=== PATIENT | female | born 1990 | race Caucasian/White ===

== ENCOUNTER 2017-07-02 22:25 | Outpatient (CLI) | payer OTHER ==
[2017-07-02 23:05] LABS: Appearance,Urine Cloudy (Clear); Bacteria,Urine Rare /hpf; Bilirubin,Urine Negative (Negative); Glucose,Urine (UA) Negative (Negative); Ketones,Urine Negative (Negative); Leukocyte Esterase,Urine Small (Negative); Mucus,Urine Few /hpf; Nitrite,Urine Negative (Negative); PH, Urine 6.5 (5.0-8.0); Particle Count 8907; Protein,Urine Trace (Negative); RBC,Urine 1 /hpf (0-5); Specific Gravity,Urine 1.027 (1.001-1.035); Squamous Epithelial Cell,Urine 10 /hpf (0-4); UA Billing (MACRO vs. MICRO) MICRO; WBC,Urine 4 /hpf (0-5)
[2017-07-02 23:41] VITALS: BP 112/72; PULSE 88; RESP 18; TEMP 97.8
--- NOTE | 2017-07-23 20:13 | P.MSEPDOC ---
Presenting Problems - Arrival Data Date of Arrival on Unit: 07/02/17 Time of Arrival on Unit: 22:25 Mode of Transport: Wheelchair - Complaint OB-Reason for Admission/Chief Complaint: Pain Medical History - Information : 1 Para: 0 Term: 0 : 0 Abortions: Spontaneous or Elective: 0 Number of Living Children: 0 - Gestational Age Gestational Age by ALHAJI (wks/days): 27 Weeks and 6 Days Review of Systems - Review of Systems Constitutional: No problems Breast: No problems ENT: No problems Cardiovascular: No problems Respiratory: No problems Gastrointestinal: No problems Genitourinary: No problems Musculoskeletal: No problems Neurological: No problems Skin: No problems Vital Signs - Temperature Temperature: 97.8 F Temperature Source: Oral - Pulse Right Brachial Pulse Rate: 88 Pulse Assessment Method: Automatic Cuff - Respirations Respiratory Rate: 18 Oxygen Delivery Method: Room Air - Blood Pressure Right Arm Blood Pressure: 112/72 Blood Pressure Mean: 85 Blood Pressure Source: Automatic Cuff Medical Screen Scoring (Pre) - Cervical Exam Dilation: Exam Deferred Effacement: Exam Deferred Membranes: Intact - Uterine Contractions Frequency: N/A Duration: N/A Intensity: N/A - Maternal Vital Signs Maternal Temperature: N/A Maternal Blood Pressure: N/A Signs of Preeclampsia: N/A Maternal Respirations: N/A - Maternal Trauma Maternal Trauma: N/A - Assessment Baseline FHR: 135 Heart Rate - NICHD Category: Category I (Normal) = 0 - Total Score Total Score (Pre): 0 - Level of Risk Level of Risk: Low (0-5) Physician Notification (Pre) - Physician Notified Physician Notified Date: 07/02/17 Physician Notified Time: 23:15 Physician/Practitioner Notifed:: Dr. Grewal Spoke With: Dr. Grewal New Order Received: Yes (Discharge pt to home) - Notification Comment Comment: Dr. Grewal given report on pt in triage, c/o pain, u/a results, and fhts. Orders recieved to d/c pt to home. Disposition - Disposition OB Disposition: Discharge to home Discharge Date: 07/02/17 Discharge Time: 23:25 I agree with the RN Medical Screening Exam: Yes Risk & Benefit of care provided described in d/c instruction: Yes Diagnosis: RELATED CONDITIONS, UNSPECIFIED, SECOND TRIMESTER
== END 2017-07-02 23:25 | disposition home or self-care (01) ==
LOC: FBPOP 22:25
PROVIDERS: ATTEND Obstetrics & Gynecology
DX: O26.92 Pregnancy related conditions, unspecified, second trimester (principal); Z3A.27 27 weeks gestation of pregnancy
CPT/HCPCS: 81001; 99213

== ENCOUNTER 2017-07-18 01:17 | Emergency (ER) | payer SELFPAY ==
[2017-07-18] MEDS ORDERED: SODIUM CHLORIDE 0.9% 1,000 ML IV STA (01:22)
[2017-07-18 01:34] LABS: Basophils % (A) 0 %; CH 32.2; CHCM 35.2; Eosinophils # (A) 0.1 k/uL (0-0.7); Eosinophils % (A) 1 %; HDW 2.97; HGB 12.5 gm/dL (11.4-16.0); Luc # (Auto) 0.22; Luc % (Auto) 2; Lymphocytes % (A) 21 %; MCH 31.9 pg (25.0-35.0); MCHC 34.7 g/dL (31.0-37.0); Mean Platelet Volume 6.6; Monocytes # (A) 0.6 k/uL (0-1.0); Monocytes % (A) 6 %; Neutrophils # (A) 6.6 k/uL (1.3-7.7); Neutrophils % (A) 69 %; RBC 3.91 m/uL (3.80-5.40); RDW 13.3 % (11.5-15.5); WBC 9.6 k/uL (3.8-10.6); WBC (Perox) 9.82
[2017-07-18 01:35] LABS: Glucose,Whole Blood 85 mg/dL (75-99)
[2017-07-18 01:44] LABS: INR 0.9 (<1.2); Partial Thromboplastin Time 22.8 sec (22.0-30.0); Prothrombin Time 9.6 sec (9.0-12.0)
[2017-07-18 01:53] LABS: ALT 33 U/L (9-52); AST 24 U/L (14-36); Alkaline Phosphatase 120 U/L (38-126); Anion Gap 10 mmol/L; Blood Urea Nitrogen 8 mg/dL (7-17); Calcium 9.4 mg/dL (8.4-10.2); Carbon Dioxide 19 mmol/L (22-30); Chloride 106 mmol/L (98-107); Glucose 82 mg/dL (74-99); Magnesium 1.6 mg/dL (1.6-2.3); Non-African American GFR(MDRD) >60 (>60 ml/min/1.73 sqM); Potassium 4.5 mmol/L (3.5-5.1); Sodium 135 mmol/L (137-145); Total Bilirubin 0.4 mg/dL (0.2-1.3); Total Protein 6.6 g/dL (6.3-8.2)
--- NOTE | 2017-07-18 02:08 | ED ---
Arrhythmia/Palpitations HPI - General Stated Complaint: SYNCOPE Time Seen by Provider: 07/18/17 01:21 Source: patient Mode of arrival: wheelchair Limitations: no limitations - History of Present Illness Initial Comments: This patient is a 26-year-old woman, who states she is proximally 30 weeks , who presents to be evaluated for racing heart. 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 She states that she suddenly became lightheaded, a bit short of breath, felt her heart racing, and had some pressure in her chest. She states she has previously had the symptoms. She was seen by the cardiologists and had worn a Holter monitor. Patient was told that she had had a little bit of tachycardia but was told that she does not require any medications now, but they would perhaps reconsider after she delivers her baby. Currently the patient's symptoms are resolving. MD Complaint: "heart racing" -: minutes(s) Context: occurred during rest Arrhythmia History: SVT Associated Symptoms: chest pain, shortness of breath, other (Lightheadedness) Treatments Prior to Arrival: vagal maneuvers - Related Data Allergies Allergy/AdvReac Type Severity Reaction Status Date / Time No Known Allergies Allergy Verified 06/11/15 16:53 Review of Systems ROS Statement: Those systems with pertinent positive or pertinent negative responses have been documented in the HPI. ROS Other: All systems not noted in ROS Statement are negative. Constitutional: Denies: fever, chills Eyes: Denies: vision change Respiratory: Reports: dyspnea. Denies: cough, wheezes Cardiovascular: Reports: as per HPI, chest pain, palpitations. Denies: edema, syncope Gastrointestinal: Denies: abdominal pain, nausea, vomiting Genitourinary: Denies: dysuria, frequency, discharge, abnormal menses Musculoskeletal: Denies: back pain Skin: Denies: rash Neurological: Denies: headache, weakness, numbness Past Medical History Past Medical History: No Reported History History of Any Multi-Drug Resistant Organisms: None Reported Past Surgical History: Appendectomy Additional Past Surgical History / Comment(s): Rt ACL reconstruction Past Psychological History: No Psychological Hx Reported Smoking Status: Never smoker Past Alcohol Use History: None Reported Past Drug Use History: None Reported General Exam Limitations: no limitations General appearance: alert, in no apparent distress Head exam: Present: atraumatic, normocephalic Eye exam: Present: normal appearance. Absent: scleral icterus, conjunctival injection Neck exam: Present: normal inspection Respiratory exam: Present: normal lung sounds bilaterally. Absent: respiratory distress, wheezes, rales, rhonchi, stridor Cardiovascular Exam: Present: regular rate, normal rhythm, normal heart sounds. Absent: systolic murmur, diastolic murmur, rubs, gallop GI/Abdominal exam: Present: soft, mass (Gravid uterus palpable about 5 inches above the umbilicus. There is good movements palpable). Absent: distended, tenderness, guarding, rebound, pulsatile mass, hernia Extremities exam: Present: normal inspection, normal capillary refill. Absent: pedal edema, calf tenderness Back exam: Present: normal inspection. Absent: CVA tenderness (R), CVA tenderness (L) Neurological exam: Present: alert Skin exam: Present: warm, dry, intact, normal color. Absent: rash Course Vital Signs 07/18/17 01:24 Temperature 98.9 F Pulse Rate 96 Respiratory 18 Rate Blood Pressure 118/76 O2 Sat by Pulse 98 Oximetry EKG Findings - EKG Results: EKG: interpreted by ERMD, sinus rhythm (Rate approximately 92 bpm), normal axis , normal QRS, normal ST/T, no acute changes - SC, Pacemaker, Normal: Normal tracing: normal tracing Medical Decision Making - Lab Data Result diagrams: 07/18/17 01:25 07/18/17 01:25 Lab Results 07/18/17 07/18/17 07/18/17 Range/Units 01:22 01:25 01:25 WBC 9.6 (3.8-10.6) k/uL RBC 3.91 (3.80-5.40) m/uL Hgb 12.5 (11.4-16.0) gm/dL Hct 36.0 (34.0-46.0) % MCV 92.0 (80.0-100.0) fL MCH 31.9 (25.0-35.0) pg MCHC 34.7 (31.0-37.0) g/dL RDW 13.3 (11.5-15.5) % Plt Count 328 (150-450) k/uL Neutrophils % 69 % Lymphocytes % 21 % Monocytes % 6 % Eosinophils % 1 % Basophils % 0 % Neutrophils # 6.6 (1.3-7.7) k/uL Lymphocytes # 2.0 (1.0-4.8) k/uL Monocytes # 0.6 (0-1.0) k/uL Eosinophils # 0.1 (0-0.7) k/uL Basophils # 0.0 (0-0.2) k/uL PT (9.0-12.0) sec INR (<1.2) APTT (22.0-30.0) sec Sodium 135 L (137-145) mmol/L Potassium 4.5 (3.5-5.1) mmol/L Chloride 106 (98-107) mmol/L Carbon Dioxide 19 L (22-30) mmol/L Anion Gap 10 mmol/L BUN 8 (7-17) mg/dL Creatinine 0.60 (0.52-1.04) mg/dL Est GFR (MDRD) Af Amer >60 (>60 ml/min/1.73 sqM) Est GFR (MDRD) Non-Af >60 (>60 ml/min/1.73 sqM) Glucose 82 (74-99) mg/dL POC Glucose (mg/dL) 85 (75-99) mg/dL POC Glu [employer] ID Nancy Saravia Calcium 9.4 (8.4-10.2) mg/dL Magnesium 1.6 (1.6-2.3) mg/dL Total Bilirubin 0.4 (0.2-1.3) mg/dL AST 24 (14-36) U/L ALT 33 (9-52) U/L Alkaline Phosphatase 120 (38-126) U/L Troponin I (0.000-0.034) ng/mL Total Protein 6.6 (6.3-8.2) g/dL Albumin 3.5 (3.5-5.0) g/dL TSH 1.530 (0.465-4.680) mIU/L 07/18/17 07/18/17 Range/Units 01:25 01:25 WBC (3.8-10.6) k/uL RBC (3.80-5.40) m/uL Hgb (11.4-16.0) gm/dL Hct (34.0-46.0) % MCV (80.0-100.0) fL MCH (25.0-35.0) pg MCHC (31.0-37.0) g/dL RDW (11.5-15.5) % Plt Count (150-450) k/uL Neutrophils % % Lymphocytes % % Monocytes % % Eosinophils % % Basophils % % Neutrophils # (1.3-7.7) k/uL Lymphocytes # (1.0-4.8) k/uL Monocytes # (0-1.0) k/uL Eosinophils # (0-0.7) k/uL Basophils # (0-0.2) k/uL PT 9.6 (9.0-12.0) sec INR 0.9 (<1.2) APTT 22.8 (22.0-30.0) sec Sodium (137-145) mmol/L Potassium (3.5-5.1) mmol/L Chloride (98-107) mmol/L Carbon Dioxide (22-30) mmol/L Anion Gap mmol/L BUN (7-17) mg/dL Creatinine (0.52-1.04) mg/dL Est GFR (MDRD) Af Amer (>60 ml/min/1.73 sqM) Est GFR (MDRD) Non-Af (>60 ml/min/1.73 sqM) Glucose (74-99) mg/dL POC Glucose (mg/dL) (75-99) mg/dL POC Glu [employer]iner ID Calcium (8.4-10.2) mg/dL Magnesium (1.6-2.3) mg/dL Total Bilirubin (0.2-1.3) mg/dL AST (14-36) U/L ALT (9-52) U/L Alkaline Phosphatase (38-126) U/L Troponin I <0.012 (0.000-0.034) ng/mL Total Protein (6.3-8.2) g/dL Albumin (3.5-5.0) g/dL TSH (0.465-4.680) mIU/L Disposition Clinical Impression: Paroxysmal SVT (supraventricular tachycardia) Disposition: HOME SELF-CARE Condition: Good Instructions: Supraventricular Tachycardia (ED) Referrals: None,Stated [Primary Care Provider] - 1-2 days Kin Brizuela MD [STAFF PHYSICIAN] - 1-2 days
--- NOTE | 2017-07-18 02:25 | XR ---
EXAM: XR Chest, 1 View CLINICAL HISTORY: Reason: dysrhythmia TECHNIQUE: Frontal view of the chest. COMPARISON: No relevant prior studies available. FINDINGS: Lungs: Hypoventilatory examination. Bibasilar opacities are nonspecific and may represent atelectasis or an infectious or inflammatory process. Pleural space: No pneumothorax. Heart: Unremarkable. No cardiomegaly. Mediastinum: Unremarkable. Bones/joints: No acute osseous abnormality. IMPRESSION: Hypoventilatory examination. Bibasilar opacities are nonspecific and may represent atelectasis or an infectious or inflammatory process.
[2017-07-18 04:15] VITALS: BP 112/69; PULSE 90; RESP 16; TEMP 97.3
== END 2017-07-18 02:55 | disposition home or self-care (01) ==
LOC: EC 01:17
DX: O99.413 Diseases of the circulatory system complicating pregnancy, third trimester (principal); I47.1 Supraventricular tachycardia; Z3A.30 30 weeks gestation of pregnancy; Z95.0 Presence of cardiac pacemaker
CPT/HCPCS: 36415; 71010; 80053; 83735; 84443; 84484; 85025; 85610; 85730; 93005; 96360; 99284

== ENCOUNTER 2017-09-17 14:55 | Outpatient (CLI) | payer MEDICAID ==
[2017-09-17 15:48] VITALS: BP 114/67; PULSE 89; RESP 17; TEMP 97.4
--- NOTE | 2017-10-15 04:26 | P.MSEPDOC ---
Presenting Problems - Arrival Data Date of Arrival on Unit: 09/17/17 Time of Arrival on Unit: 14:55 Mode of Transport: Ambulatory - Complaint OB-Reason for Admission/Chief Complaint: Possible Onset of Labor, Other Comment: Rule out ROM Medical History - Information : 1 Para: 0 Term: 0 : 0 Abortions: Spontaneous or Elective: 0 Number of Living Children: 0 - Gestational Age Gestational Age by ALHAJI (wks/days): 38 Weeks and 6 Days Review of Systems - Review of Systems Constitutional: No problems Breast: No problems ENT: No problems Cardiovascular: No problems Respiratory: No problems Gastrointestinal: No problems Genitourinary: No problems Musculoskeletal: No problems Neurological: No problems Skin: No problems Vital Signs - Temperature Temperature: 97.4 F Temperature Source: Temporal Artery Scan - Pulse Pulse Oximetery Pulse Rate: 89 Pulse Assessment Method: Pulse Oximetry - Respirations Respiratory Rate: 17 Oxygen Delivery Method: Room Air O2 Sat by Pulse Oximetry: 97 - Blood Pressure Right Arm Blood Pressure: 114/67 Blood Pressure Mean: 82 Blood Pressure Source: Automatic Cuff Medical Screen Scoring (Pre) - Cervical Exam Dilation: 1-3 cm = 1 Effacement: More than 50% = 2 Membranes: Intact - Uterine Contractions Frequency: N/A Duration: N/A Intensity: N/A - Maternal Vital Signs Maternal Temperature: N/A Maternal Blood Pressure: N/A Signs of Preeclampsia: N/A Maternal Respirations: N/A - Pain Assessment Pain Scale Used: Numeric (1 - 10) Pain Intensity: 0 - Assessment Baseline FHR: 140 Heart Rate - NICHD Category: Category I (Normal) = 0 NST: Reactive Position: N/A - Total Score Total Score (Pre): 3 - Level of Risk Level of Risk: Low (0-5) Physician Notification (Pre) - Physician Notified Physician Notified Date: 09/17/17 Physician Notified Time: 15:27 Physician/Practitioner Notifed:: Alba Spoke With: Alba New Order Received: Yes (Discharge) Disposition - Disposition OB Disposition: Discharge to home Discharge Date: 09/17/17 Discharge Time: 15:31 I agree with the RN Medical Screening Exam: Yes Risk & Benefit of care provided described in d/c instruction: Yes Diagnosis: FALSE LABOR, UNSPECIFIED
== END 2017-09-17 15:31 | disposition home or self-care (01) ==
LOC: FBPOP 14:55
PROVIDERS: ATTEND Obstetrics & Gynecology
DX: O47.9 False labor, unspecified (principal); Z3A.38 38 weeks gestation of pregnancy
CPT/HCPCS: 59025; 84112; 99213

== ENCOUNTER 2017-12-03 12:50 | Emergency (ER) | payer MEDICAID, OTHER ==
[2017-12-03 13:00] VITALS: BP 109/65; PULSE 80; RESP 20; TEMP 98.3
--- NOTE | 2017-12-03 13:09 | ED ---
General Adult HPI - General Chief complaint: Needlestick/Exposure Stated complaint: IHS-Needlesick Time Seen by Provider: 12/03/17 13:03 Source: patient, RN notes reviewed Mode of arrival: ambulatory Limitations: no limitations - History of Present Illness Initial comments: Patient's 27-year-old female who presents emergency room today with a chief complaint of a needlestick injury. Patient does work as a nurse up on the floors. She states she was given insulin to a patient. She states she went to remove the needle patient moved and before she was able to hit the retraction but she accidentally poked her left index finger. States blood she did clean it. Patient denies any other complaints or symptoms. Patient denies any recent fever, chills, shortness of breath, chest pain, back pain, abdominal pain, nausea or vomiting, numbness or tingling, or any other complaints. - Related Data Home Medications Medication Instructions Recorded Confirmed Pnv,Calcium 72/Iron/Folic Acid 1 tab PO DAILY 09/17/17 09/23/17 [ Plus Tablet] Allergies Allergy/AdvReac Type Severity Reaction Status Date / Time No Known Allergies Allergy Verified 12/03/17 13:00 Review of Systems ROS Statement: Those systems with pertinent positive or pertinent negative responses have been documented in the HPI. ROS Other: All systems not noted in ROS Statement are negative. Past Medical History Past Medical History: No Reported History History of Any Multi-Drug Resistant Organisms: None Reported Past Surgical History: Appendectomy Additional Past Surgical History / Comment(s): Rt ACL reconstruction Past Anesthesia/Blood Transfusion Reactions: No Reported Reaction Past Psychological History: No Psychological Hx Reported Smoking Status: Never smoker Past Alcohol Use History: None Reported Past Drug Use History: None Reported - Past Family History Mother Family Medical History: Cancer Additional Family Medical History / Comment(s): Lung cancer General Exam - General Exam Comments Initial Comments: General: The patient is awake and alert, in no distress, and does not appear acutely ill. Eye: Pupils are equal, round and reactive to light, extra-ocular movements are intact. No nystagmus. There is normal conjunctiva bilaterally. No signs of icterus. Cardiovascular: There is a regular rate and rhythm. No murmur, rub or gallop is appreciated. Respiratory: Lungs are clear to auscultation, respirations are non-labored, breath sounds are equal. No wheezes, stridor, rales, or rhonchi. Musculoskeletal: Normal ROM, no tenderness. Strength 5/5. Sensation intact. Pulses equal bilaterally 2+. Neurological: A&O x 3. CN II-XII intact, There are no obvious motor or sensory deficits. Coordination appears grossly intact. Speech is normal. Skin: Patient does have small red dot at the left lateral distal index finger. Psychiatric: Cooperative, appropriate mood & affect, normal judgment. Limitations: no limitations Course Vital Signs 12/03/17 12:58 Temperature 98.3 F Pulse Rate 80 Respiratory 20 Rate Blood Pressure 109/65 O2 Sat by Pulse 99 Oximetry Medical Decision Making - Medical Decision Making Rapid HIV test was performed on source patient. Rapid test was negative. Patient has been informed. Patient did have a needlestick to the left index finger from a hypodermic needle. At this time patient's labs are pending. She is advised continue to follow [facility]. Disposition Clinical Impression: Needle stick injury of finger Disposition: HOME SELF-CARE Condition: Good Instructions: Needle Stick Injuries (ED) Referrals: None,Stated [Primary Care Provider] - 1-2 days Time of Disposition: 13:48
== END 2017-12-03 14:41 | disposition home or self-care (01) ==
LOC: EC 12:50
DX: S69.92XA Unspecified injury of left wrist, hand and finger(s), initial encounter (principal); Z79.899 Other long term (current) drug therapy; W46.0XXA Contact with hypodermic needle, initial encounter; Y92.69 Other specified industrial and construction area as the place of occurrence of the external cause; Y93.89 Activity, other specified; Y99.0 Civilian activity done for income or pay
CPT/HCPCS: 99282

== ENCOUNTER → 2018-07-05 | Outpatient (CLI) | payer MEDICAID ==
--- NOTE | 2018-07-05 10:07 | MR ---
EXAMINATION TYPE: MR knee RT wo con DATE OF EXAM: 07/05/2018 COMPARISON: NONE HISTORY: 561Pain in right knee, effusion, status post ACL reconstruction and partial medial meniscect mike with suspected recurrent tear. TECHNIQUE: Multiplanar, multisequence images of the knee is performed without IV contrast. FINDINGS: MEDIAL MENISCUS: Anterior horn is intact without tear. There is absent central portion and marked dim inished size remnant posterior meniscus, some increased signal is present in this remnant meniscus sa gittal image 7. LATERAL MENISCUS: Anterior and posterior horns are intact without tear. CRUCIATE LIGAMENTS: The posterior cruciate ligament is intact and unremarkable. Surgically repaired a nterior cruciate ligament appears intact with oblique course. No suspicious signal or wavy contour is identified. COLLATERAL LIGAMENTS: The medial collateral ligament and lateral collateral ligament complex are inta ct and unremarkable. EXTENSOR MECHANISM: Visualized quadriceps and patellar tendons are intact. EFFUSION: There is large suprapatellar joint effusion. POPLITEAL CYST: No popliteal/mejía cyst. TRICOMPARTMENT SPACES: Tricompartment joint spaces are fairly well-maintained. There is mild tibial c ondylar spurring noted. CARTILAGE: Fissuring and thinning of articular cartilage medial tibiofemoral compartment is identifie d. No significant chondromalacia patella is seen. BONE MARROW SIGNAL: Artifact from prior ACL surgical repair is present. No suspicious edema seen. OTHER: Artifact from surgical change noted in Hoffa's fat pad. IMPRESSION: Abnormality central body and posterior horn of medial meniscus favors postsurgical change , cannot rule out at least recurrent intrasubstance tear. Otherwise no meniscal tear is evident. Surg ically repaired ACL is felt intact. Large suprapatellar joint effusion is confirmed. Mild osteoarthri tic changes most prominent medial tibiofemoral compartment noted.
== END | disposition home or self-care (01) ==
LOC: RADMRIMAIN 08:43
PROVIDERS: ATTEND Orthopaedic Surgery
DX: M17.11 Unilateral primary osteoarthritis, right knee (principal); Z98.890 Other specified postprocedural states

== ENCOUNTER 2019-05-16 11:56 | Inpatient (IN) | payer MEDICAID ==
[2019-05-16] MEDS ORDERED: SODIUM CHLORIDE 0.9% 1,000 ML IV STA ×2 (12:47)
[2019-05-16 13:09] LABS: Basophils % (A) 0 %; Eosinophils # (A) 0.1 k/uL (0-0.7); Eosinophils % (A) 1 %; HCT 40.2 % (34.0-46.0); HGB 13.9 gm/dL (11.4-16.0); Lymphocytes # (A) 1.4 k/uL (1.0-4.8); Lymphocytes % (A) 14 %; MCH 29.8 pg (25.0-35.0); MCHC 34.5 g/dL (31.0-37.0); MCV 86.4 fL (80.0-100.0); Mean Platelet Volume 6.1; Monocytes # (A) 0.5 k/uL (0-1.0); Monocytes % (A) 5 %; Neutrophils # (A) 8.4 k/uL (1.3-7.7); Neutrophils % (A) 80 %; Platelet Count 324 k/uL (150-450); RBC 4.66 m/uL (3.80-5.40); RDW 12.8 % (11.5-15.5); WBC 10.5 k/uL (3.8-10.6)
[2019-05-16 13:15] LABS: Partial Thromboplastin Time 27.1 sec (22.0-30.0); Prothrombin Time 10.6 sec (9.0-12.0)
[2019-05-16 13:16] LABS: ALT 17 U/L (9-52); AST 25 U/L (14-36); African American GFR (CKD) >90 (>60 ml/min/1.73 sqM); Albumin 4.4 g/dL (3.5-5.0); Alkaline Phosphatase 68 U/L (38-126); Anion Gap 12 mmol/L; Blood Urea Nitrogen 11 mg/dL (7-17); Calcium 9.6 mg/dL (8.4-10.2); Carbon Dioxide 19 mmol/L (22-30); Chloride 108 mmol/L (98-107); Glucose 95 mg/dL (74-99); Non-African American GFR(CKD) >90 (>60 ml/min/1.73 sqM); Potassium 4.2 mmol/L (3.5-5.1); Sodium 139 mmol/L (137-145); Total Bilirubin 0.7 mg/dL (0.2-1.3); Total Protein 7.3 g/dL (6.3-8.2)
--- NOTE | 2019-05-16 13:21 | XR ---
EXAMINATION TYPE: XR chest 2V DATE OF EXAM: 05/16/2019 COMPARISON: Prior chest x-ray dated 07/18/2017 HISTORY: Altered mental status TECHNIQUE: Frontal and lateral views of the chest are obtained. FINDINGS: There is no focal air space opacity, pleural effusion, or pneumothorax seen. The cardiac silhouette size is within normal limits. The osseous structures are intact. IMPRESSION: No acute cardiopulmonary process.
--- NOTE | 2019-05-16 14:17 | ED ---
Altered Mental Status HPI - General Chief Complaint: Altered Mental Status Stated Complaint: memory loss Time Seen by Provider: 05/16/19 12:28 Source: patient, family Mode of arrival: ambulatory Limitations: no limitations - History of Present Illness Initial Comments: This is a 28-year-old female the ER for evaluation. Patient presents very anxious, crying regarding recent short-term memory loss. Patient is continues loss of memory currently, unable to recall events of the day. No prior history of similar complaint, no significant stressors in her life, patient denies any new medications, denies drugs or alcohol. Symptoms were noticed by who are talking the patient on the phone off working today. Patient occasional headache, no current headache no nausea vomiting. MD Complaint: altered mental status, confusion (Short-term memory loss) -: hour(s) Consistency of Symptoms: constant Associated Symptoms: denies other symptoms - Related Data Home Medications Medication Instructions Recorded Confirmed No Known Home Medications 05/16/19 05/16/19 Allergies Allergy/AdvReac Type Severity Reaction Status Date / Time No Known Allergies Allergy Verified 05/16/19 14:06 Review of Systems ROS Statement: Those systems with pertinent positive or pertinent negative responses have been documented in the HPI. ROS Other: All systems not noted in ROS Statement are negative. Past Medical History Past Medical History: No Reported History History of Any Multi-Drug Resistant Organisms: None Reported Past Surgical History: Appendectomy Additional Past Surgical History / Comment(s): Rt ACL reconstruction Past Anesthesia/Blood Transfusion Reactions: No Reported Reaction Past Psychological History: No Psychological Hx Reported Smoking Status: Never smoker Past Alcohol Use History: Occasional Past Drug Use History: None Reported - Past Family History Mother Family Medical History: Cancer Additional Family Medical History / Comment(s): Lung cancer General Exam - General Exam Comments Initial Comments: NIH of 0, memory testing, one out of 3 able to be called Limitations: no limitations General appearance: alert, in no apparent distress Head exam: Present: atraumatic, normocephalic, normal inspection Eye exam: Present: normal appearance, PERRL, EOMI. Absent: scleral icterus, conjunctival injection, periorbital swelling ENT exam: Present: normal exam, mucous membranes moist Neck exam: Present: normal inspection. Absent: tenderness, meningismus, lymph adenopathy Respiratory exam: Present: normal lung sounds bilaterally. Absent: respiratory distress, wheezes, rales, rhonchi, stridor Cardiovascular Exam: Present: regular rate, normal rhythm, normal heart sounds. Absent: systolic murmur, diastolic murmur, rubs, gallop, clicks GI/Abdominal exam: Present: soft, normal bowel sounds. Absent: distended, tenderness, guarding, rebound, rigid Extremities exam: Present: normal inspection, full ROM, normal capillary refill. Absent: tenderness, pedal edema, joint swelling, calf tenderness Back exam: Present: normal inspection Neurological exam: Present: alert, oriented X3, CN II-XII intact Psychiatric exam: Present: normal affect, normal mood Skin exam: Present: warm, dry, intact, normal color. Absent: rash Course Vital Signs 05/16/19 05/16/19 12:22 14:41 Temperature 98.5 F 98.4 F Pulse Rate 85 86 Respiratory 18 18 Rate Blood Pressure 111/73 103/62 O2 Sat by Pulse 98 99 Oximetry - Reevaluation(s) Reevaluation #1: 05/16/19 14:49 Medical records reviewed Reevaluation #2: 05/16/19 14:49 A she is not TPA candidate secondary to onset of symptoms are unknown Reevaluation #3: 05/16/19 14:50 Patient still with memory loss, emotional, crying during questioning Medical Decision Making - Medical Decision Making 28 female the ER for evaluation of recent short-term memory loss, started today. Patient is unable to recall any events that occurred to her today. Patient be admitted for both neurology evaluation - Lab Data Result diagrams: 05/16/19 12:52 05/16/19 12:52 Lab Results 05/16/19 05/16/19 05/16/19 Range/Units 12:52 12:52 12:52 WBC 10.5 (3.8-10.6) k/uL RBC 4.66 (3.80-5.40) m/uL Hgb 13.9 (11.4-16.0) gm/dL Hct 40.2 (34.0-46.0) % MCV 86.4 (80.0-100.0) fL MCH 29.8 (25.0-35.0) pg MCHC 34.5 (31.0-37.0) g/dL RDW 12.8 (11.5-15.5) % Plt Count 324 (150-450) k/uL Neutrophils % 80 % Lymphocytes % 14 % Monocytes % 5 % Eosinophils % 1 % Basophils % 0 % Neutrophils # 8.4 H (1.3-7.7) k/uL Lymphocytes # 1.4 (1.0-4.8) k/uL Monocytes # 0.5 (0-1.0) k/uL Eosinophils # 0.1 (0-0.7) k/uL Basophils # 0.0 (0-0.2) k/uL PT 10.6 (9.0-12.0) sec INR 1.0 (<1.2) APTT 27.1 (22.0-30.0) sec Sodium 139 (137-145) mmol/L Potassium 4.2 (3.5-5.1) mmol/L Chloride 108 H (98-107) mmol/L Carbon Dioxide 19 L (22-30) mmol/L Anion Gap 12 mmol/L BUN 11 (7-17) mg/dL Creatinine 0.62 (0.52-1.04) mg/dL Est GFR (CKD-EPI)AfAm >90 (>60 ml/min/1.73 sqM) Est GFR (CKD-EPI)NonAf >90 (>60 ml/min/1.73 sqM) Glucose 95 (74-99) mg/dL Calcium 9.6 (8.4-10.2) mg/dL Phosphorus (2.5-4.5) mg/dL Magnesium (1.6-2.3) mg/dL Total Bilirubin 0.7 (0.2-1.3) mg/dL AST 25 (14-36) U/L ALT 17 (9-52) U/L Alkaline Phosphatase 68 (38-126) U/L Troponin I (0.000-0.034) ng/mL Total Protein 7.3 (6.3-8.2) g/dL Albumin 4.4 (3.5-5.0) g/dL Salicylates mg/dL Acetaminophen ug/mL Serum Alcohol mg/dL 05/16/19 05/16/19 Range/Units 12:52 14:02 WBC (3.8-10.6) k/uL RBC (3.80-5.40) m/uL Hgb (11.4-16.0) gm/dL Hct (34.0-46.0) % MCV (80.0-100.0) fL MCH (25.0-35.0) pg MCHC (31.0-37.0) g/dL RDW (11.5-15.5) % Plt Count (150-450) k/uL Neutrophils % % Lymphocytes % % Monocytes % % Eosinophils % % Basophils % % Neutrophils # (1.3-7.7) k/uL Lymphocytes # (1.0-4.8) k/uL Monocytes # (0-1.0) k/uL Eosinophils # (0-0.7) k/uL Basophils # (0-0.2) k/uL PT (9.0-12.0) sec INR (<1.2) APTT (22.0-30.0) sec Sodium (137-145) mmol/L Potassium (3.5-5.1) mmol/L Chloride (98-107) mmol/L Carbon Dioxide (22-30) mmol/L Anion Gap mmol/L BUN (7-17) mg/dL Creatinine (0.52-1.04) mg/dL Est GFR (CKD-EPI)AfAm (>60 ml/min/1.73 sqM) Est GFR (CKD-EPI)NonAf (>60 ml/min/1.73 sqM) Glucose (74-99) mg/dL Calcium (8.4-10.2) mg/dL Phosphorus 3.3 (2.5-4.5) mg/dL Magnesium 1.7 (1.6-2.3) mg/dL Total Bilirubin (0.2-1.3) mg/dL AST (14-36) U/L ALT (9-52) U/L Alkaline Phosphatase (38-126) U/L Troponin I <0.012 (0.000-0.034) ng/mL Total Protein (6.3-8.2) g/dL Albumin (3.5-5.0) g/dL Salicylates <1.0 mg/dL Acetaminophen <10.0 ug/mL Serum Alcohol <10 mg/dL - EKG Data -: EKG Interpreted by Me (EKG shows normal sinus rhythm rate of 96, CT 120, QRS 88, QTc 462) - Radiology Data Radiology results: report reviewed (X-ray CT brain CTA had not negative for acute disease), image reviewed Critical Care Time Critical Care Time: Yes Total Critical Care Time: 31 Disposition Clinical Impression: Altered mental status, Short-term memory loss, CVA (cerebral vascular accident) Disposition: ADMITTED IP TO THIS HOSP Is patient prescribed a controlled substance at d/c from ED?: No
[2019-05-16] MEDS ORDERED: ASPIRIN 325 MG TAB PO STA (14:18)
--- NOTE | 2019-05-16 14:30 | CT ---
EXAMINATION TYPE: CT angio head neck DATE OF EXAM: 05/16/2019 HISTORY: COMPARISON: None CT DLP: Not provided mGycm. Automated Exposure Control for Dose Reduction was Utilized. TECHNIQUE: CTA scan of the neck is performed with IV Contrast, patient injected with 50 mL of Isovue 370, axial images are obtained, coronal and sagittal reformatted images are reviewed. Three-D recons tructed images are created on an independent workstation and reviewed. Source images are reviewed. FINDINGS: Carotid/Vascular Structures: There is a three-vessel arch. Vertebral arteries are codominant. The com mon carotid arteries bifurcate into internal and external carotid arteries without significant flow-l imiting stenosis. Cervical of [place]: Vertebral basilar system appears normal. Posterior cerebral vasculature is unrema rkable. Internal carotid arteries bifurcate normally into A1 and M1 segments. A2 segments are normal. The anterior communicating artery is patent. Left Posterior communicating artery is patent. Right po sterior communicating artery is patent. Other: Retention cysts are within the right maxillary sinus. Dental amalgam scatter artifact is prese nt. Glands submandibular glands appear symmetrical. Portion of the thyroid visualized is normal. Subglott ic airway within the [id number] is normal. Upper lung barnett visualized are clear. IMPRESSION: 1. No flow-limiting stenosis bilateral carotid bifurcations. 2. Normal [place]
[2019-05-16 14:43] LABS: Acetaminophen <10.0 ug/mL; Alcohol <10 mg/dL; Magnesium 1.7 mg/dL (1.6-2.3); Phosphorus 3.3 mg/dL (2.5-4.5); Salicylate <1.0 mg/dL
--- NOTE | 2019-05-16 14:53 | CT ---
EXAMINATION TYPE: CT brain wo con for TPA DATE OF EXAM: 05/16/2019 COMPARISON: None HISTORY: Memory Loss CT DLP: 1572.9 mGycm Automated exposure control for dose reduction was used. FINDINGS: There is no acute intracranial hemorrhage, mass effect, or midline shift identified. Prominent periva scular spaces noted inferior to the right basal ganglia. No suspicious extra-axial fluid collection. The ventricles and sulci are within normal limits in size. The globes are intact. Mucosal retention cysts are seen within the right maxillary sinus versus polyps. These measure up to 1.8 and 1.3 cm. Sc ant mucosal thickening of the left maxillary sinus. Sphenoid sinus polyp versus mucosal retention cys t measures 8 mm. Remaining paranasal sinuses and mastoid air cells are well aerated. IMPRESSION: No acute intracranial hemorrhage, mass effect, or midline shift is seen. Multiple mucosal retention c ysts versus polyps throughout the paranasal sinuses.
[2019-05-16 14:56] LABS: Appearance,Urine Clear (Clear); Bilirubin,Urine Negative (Negative); Blood,Urine Negative (Negative); Color,Urine Light Yellow; Glucose,Urine (UA) Negative (Negative); Ketones,Urine 1+ (Negative); Leukocyte Esterase,Urine Negative (Negative); Nitrite,Urine Negative (Negative); PH, Urine 6.5 (5.0-8.0); Protein,Urine Negative (Negative); Specific Gravity,Urine 1.042 (1.001-1.035); Urobilinogen,Urine <2.0 mg/dL (<2.0)
[2019-05-16 15:15] LABS: Amphetamine Screen,Urine Not Detected (NotDetected); Barbiturate Screen,Urine Not Detected (NotDetected); Benzodiazepines Screen,Urine Not Detected (NotDetected); Cocaine Screen,Urine Not Detected (NotDetected); Methadone Screen, Urine Not Detected (NotDetected); Opiate Screen,Urine Not Detected (NotDetected); Oxycodone Screen, Urine Not Detected (NotDetected); Phencyclidine Screen,Urine Not Detected (NotDetected); Tricyclic Antidepressant,Urine Not Detected (NotDetected); Urn Cannabinoid Scrn Not Detected (NotDetected)
[2019-05-16 17:14] LABS: Glucose,Whole Blood 77 mg/dL (75-99)
[2019-05-16 18:05] VITALS: BMI 28.3
[2019-05-16] MEDS ORDERED: ALPRAZolam 0.25 MG TAB PO PRN (21:14)
[2019-05-16] MEDS ORDERED: SODIUM CHLORIDE 0.9% 1,000 ML IV SCH (21:15)
--- NOTE | 2019-05-16 23:22 | HP ---
HISTORY AND PHYSICAL CHIEF COMPLAINT: Change in mental status, memory loss. HISTORY OF PRESENT ILLNESS: This 28-year-old woman with a past medical history of no significant medical problems except right ACL reconstruction, not being followed by any primary physician in the outpatient setting has apparently had significant memory loss recently. The last thing the patient remembers was going to fair, but subsequently the patient was apparently unable to recall what happened. Patient apparently worked the last 2 days and drove home and the patient admitted for further evaluation and treatment. The basic evaluations including CBC, BMP, were normal except CO2 of [address] scan of the brain was also done showed no acute mass effects. Chest x-ray was also done. Chest x- ray showed no cardiopulmonary process and CT angio was also done which showed no flow- limiting stenosis also. The patient admitted for further evaluation and treatment. There is no history of fever, rigors. No history of headache, loss of consciousness or seizures at this time. Even though the patient is unable to remember what happened the previous at least 48 hours. The patient apparently had some stressors with family and also planning the wedding and the patient also knew patient is at this time. No chest pain, palpitations. PAST MEDICAL HISTORY: Past medical history of right ACL reconstruction. MEDICATIONS: None. ALLERGIES: None. ALLERGIES: None. FAMILY HISTORY: History of lung cancer in the family. SOCIAL HISTORY: The patient is an RN. No smoking. No alcohol intake. No substance abuse. REVIEW OF SYSTEMS: ENT: No diminished vision. No diminished hearing. CARDIOVASCULAR: No angina or palpitations. RESPIRATIONS: No cough. No hemoptysis. GI no nausea or vomiting. no dysuria or hematuria. Nervous System: As mentioned earlier. ALLERGIES/IMMUNOLOGY: No asthma or hayfever. MUSCULOSKELETAL: No history of arthritis. CONSTITUTIONAL: As mentioned earlier. DERMATOLOGY negative. Rheumatology is negative. Psychiatry is negative. PHYSICAL EXAMINATION: Alert and oriented x3. Pulse is 84. Blood pressure is 113/64, respiration 18, temperature 98.8, pulse ox 97% on room air. HEENT: Conjunctivae normal. NECK: No jugular venous distention. CARDIOVASCULAR: S1, S2 muffled. RESPIRATORY: Breath sounds diminished in the bases. No rhonchi. No crackles. ABDOMEN: Soft, nontender. No mass palpable. LEGS no edema. No swelling. NERVOUS SYSTEM: Higher functions as mentioned earlier. Moves all 4 limbs. No focal motor or sensory deficits. SKIN: No ulcer, no rash. No bleeding. JOINTS no active deforming arthropathy. LABS: CBC within normal limits. Sodium 130, potassium 4.2, CO2 is 19. Other labs are noted. ASSESSMENT: 1. Transient amnesia and memory loss. Rule out TGA. 2. Multiple social stressors. 3. Change in mental status, rule out transient ischemic attack. 4. Decreased carbon dioxide. 5. History of right ACL the reconstruction. RECOMMENDATIONS AND DISCUSSION: In this 28-year-old woman who presented with multiple complex medical issues, we will monitor the patient closely. Continue the current medications, management and symptomatic treatment. We will continue telemetry. I will recommend full neurology workup including 2D echo, otherwise antiplatelet agents has been initiated. Cautious IV fluids also will be given. Otherwise, repeat labs will be ordered for tomorrow. Lipid panel has been suggested. DVT prophylaxis. I would also recommend D-dimer if it is elevated. A CT angio will be noted also. Otherwise prognosis guarded. Further recommendations to follow. Also recommend the patient follow up with a primary physician in the outpatient setting. MMODL / IJN: [id number] /
[2019-05-17 05:43] LABS: Basophils % (A) 1 %; Eosinophils # (A) 0.1 k/uL (0-0.7); Eosinophils % (A) 1 %; HGB 12.3 gm/dL (11.4-16.0); Lymphocytes # (A) 2.3 k/uL (1.0-4.8); Lymphocytes % (A) 28 %; MCH 30.5 pg (25.0-35.0); MCHC 34.3 g/dL (31.0-37.0); MCV 88.9 fL (80.0-100.0); Mean Platelet Volume 6.4; Monocytes # (A) 0.5 k/uL (0-1.0); Monocytes % (A) 6 %; Neutrophils # (A) 5.2 k/uL (1.3-7.7); Neutrophils % (A) 63 %; Platelet Count 288 k/uL (150-450); RBC 4.05 m/uL (3.80-5.40); RDW 14.3 % (11.5-15.5); WBC 8.2 k/uL (3.8-10.6)
[2019-05-17 05:48] LABS: African American GFR (CKD) >90 (>60 ml/min/1.73 sqM); Anion Gap 7 mmol/L; Blood Urea Nitrogen 8 mg/dL (7-17); Calcium 8.5 mg/dL (8.4-10.2); Carbon Dioxide 22 mmol/L (22-30); Chloride 108 mmol/L (98-107); Cholesterol 121 mg/dL (<200); Glucose 89 mg/dL (74-99); HDL Cholesterol 31 mg/dL (40-60); LDL Cholesterol,Calculated 74 mg/dL (0-99); Non-African American GFR(CKD) >90 (>60 ml/min/1.73 sqM); Potassium 4.1 mmol/L (3.5-5.1); Sodium 137 mmol/L (137-145); Triglycerides 78 mg/dL (<150)
[2019-05-17] MEDS ORDERED: PANTOPRAZOLE 40 MG TABLET PO SCH (07:30)
[2019-05-17] MEDS ORDERED: ASPIRIN 81 MG PO SCH (09:00)
[2019-05-17] MEDS ORDERED: ASPIRIN 325 MG TAB PO SCH (12:00)
--- NOTE | 2019-05-17 13:01 | ECHOF ---
Referral Reason:TGA?? MEASUREMENTS -------- HEIGHT: 165.1 cm WEIGHT: 77.1 kg BP: 91/50 IVSd: 1.2 cm (0.6 - 1.1) LVIDd: 2.8 cm (3.9 - 5.3) LVPWd: 0.9 cm (0.6 - 1.1) IVSs: 1.7 cm LVIDs: 2.1 cm LVPWs: 1.6 cm RVIDd: 3.5 cm (< 3.3) LAESV Index (A-L): 20.20 ml/m Ao Diam: 2.9 cm (2.0 - 3.7) LA Diam: 2.5 cm (2.7 - 3.8) AV Cusp: 1.7 cm (1.5 - 2.6) EPSS: 0.3 cm MV E Tr: 0.82 m/s MV DecT: 160 ms MV A Tr: 0.48 m/s MV E/A Ratio: 1.70 RAP: 5.00 mmHg RVSP: 12.32 mmHg MV EF SLOPE: 56.76 mm/s (70 - 150) MV EXCURSION: 16.92 mm (> 18.000) FINDINGS -------- Sinus rhythm. This was a technically good study. The left ventricular size is normal. Left ventricular wall thickness is normal. Overall left vent ricular systolic function is normal with, an EF between 55 - 60 %. The right ventricle is mildly enlarged. The left atrial size is normal. Normal LA size by volume 22+/-6 ml/m2. The right atrial size is normal. Interatrial and interventricular septum intact. The aortic valve is trileaflet and appears structurally normal. The mitral valve is normal. There is trace mitral regurgitation. Trace tricuspid regurgitation present. Right ventricular systolic pressure is normal at < 35 mmHg. There is no pulmonic regurgitation present. The aortic root size is normal. Normal inferior vena cava with normal inspiratory collapse consistent with estimated right atrial pre ssure of 5 mmHg. The flow patterns, measured by Doppler, appear normal. There is no pericardial effusion. CONCLUSIONS -------- 1. Sinus rhythm. 2. This was a technically good study. 3. The left ventricular size is normal. 4. Left ventricular wall thickness is normal. 5. Overall left ventricular systolic function is normal with, an EF between 55 - 60 %. 6. The right ventricle is mildly enlarged. 7. The left atrial size is normal. 8. Normal LA size by volume 22+/-6 ml/m2. 9. The right atrial size is normal. 10. Interatrial and interventricular septum intact. 11. The aortic valve is trileaflet and appears structurally normal. 12. The mitral valve is normal. 13. There is trace mitral regurgitation. 14. Trace tricuspid regurgitation present. 15. Right ventricular systolic pressure is normal at < 35 mmHg. 16. There is no pulmonic regurgitation present. 17. The aortic root size is normal. 18. Normal inferior vena cava with normal inspiratory collapse consistent with estimated right atrial pressure of 5 mmHg. 19. The flow patterns, measured by Doppler, appear normal. 20. There is no pericardial effusion. PRODUCE BUYER: Lizz Ryan RDCS
--- NOTE | 2019-05-17 13:13 | P.CNNES ---
History of Present Illness Consult date: 05/17/19 Reason for Consult: Rule out transient global amnesia Chief complaint: Short term memory loss of about 48 hours History of Present Illness: REFERRING PHYSICIAN: Dr. Omar Quiroz HISTORY OF PRESENT ILLNESS: Thank you for allowing me to evaluate Ms. Magaly Saenz. Ms. Magaly Saenz is a 28-year-old woman with no past medical history presenting with memory loss 4 days. Patient states that her last event she remembers is going to the fair with her fianc. Patient states that she return to work on Tuesday and Tuesday but she has no recollection of point to work. Yesterday, patient had come from picking up her 1-year-old son, when her found her and her house with her car running outside. Last night, patient was asking for her mother, who in 2015 after suffering from lung cancer. She had to talk to her sister to be reminded of what happened to her mother. Patient states that she's never had similar episodes in the past. She never lost consciousness as far as she can remember. No family at bedside for corroborating information. Of note, patient lives with her fianc and her 1-year-old son. Her fianc it is a occupational health nursing director, and patient works and needs to take care of her 1-year-old. Patient also states that she didn't remember that she was until her fianc brought it up yesterday. She had had discussed about going to , most likely prior to the fair, but patient does not remember this conversation and also did not remember that she was . Patient states that she has migraines couple of times a month. Patient also has been having difficulty with sleeping. She recently went through a sleep study which was always fully exhausted during the day. There is no results of the sleep study. Patient denies any recent sickness, nausea vomiting, blurred/double vision, dizziness. Patient is also preparing for her writing. Patient is engaged in October 2016, and she will be getting next year in July. Denies using OCPs. PAST MEDICAL HISTORY: No known past medical history PAST SURGICAL HISTORY: ACL surgery HOME MEDICATIONS: Ozempic (weight loss medication, but no longer taking it), not taking prenatals ALLERGIES: No known ALLERGIES SOCIAL HISTORY: Denies any alcohol, smoking, drug abuse history. Patient works as a nurse here FAMILY HISTORY: Mother from lung cancer with metastases to the brain. Mother also history of migraines. History of brother are healthy looking REVIEW OF SYSTEMS: The 14 systems are reviewed and no additional points are identified compared to the review of systems documented history and physical PHYSICAL EXAMINATION: VITAL SIGNS: Temperature 97.8 pulse rate 96 respiratory rate 16 blood pressure 114/76 oxygen saturation 90% on room air GEN.: NAD, pleasant and cooperative HEENT: NCAT, sclera without icterus NECK: Supple SKIN AND EXTREMITIES: Warm to touch, no edema NEURO: MENTAL STATUS: Patient alert and oriented to self, place, time. Able to name the current president. Speech fluent, able to name and repeat, following all commands readily. No right and left disorientation, extinction to double simultaneous stimulation, finger agnosia, neglect. CRANIAL NERVES II THROUGH XII: II: Pupils are equal and reactive to light symmetrically. No afferent pupillary defect. Visual barnett are intact. III, IV, : No ptosis. Extraocular movements full. No nystagmus. V: Facial sensation intact from V1-3. VII. No clear facial asymmetry. VIII: Hearing intact to finger rub bilaterally. IX, X: Symmetric palate elevation. XII: Shoulder shrug intact. XII: Tongue midline without fasciculation or atrophy. MOTOR: Normal bulk/tone. No pronator drift or tremor. Strength is 5/5 throughout all 4 extremities. SENSORY: Intact to light touch, temperature, pinprick in all 4 extremities. Romberg is negative. REFLEXES: 2+ throughout. Toes are downgoing. No clonus. Manuel's is absent COORDINATION: Finger to nose and heel to hernandez intact. No dysmetria. Rapid alternating movements with good speed and accuracy. GAIT: Narrow-based and stable. Able to toe/heel/tandem walk DIAGNOSTIC TESTING: LABORATORY: WBC 8.2 hemoglobin 12.3 platelets 288 sodium 137 potassium 4.1 chloride 108 bicarb 22 BUN 8 creatinine 0.64 total cholesterol 121 LDL 74 HDL 31 triglycerides 78 urinalysis negative urine hCG positive IMAGING: CT head without contrast 05/16/2019: No acute intracranial hemorrhage, mass effect, or midline shift. Multiple mucosal retention cysts versus polished about the paranasal sinuses area CTA head and neck with contrast 05/16/2019: No flow-limiting stenosis bilateral carotid bifurcations. Normal [place] of [place]. ASSESSMENT: Ms. Magaly Saenz is a 28-year-old woman with no past medical history presenting with memory loss 4 days, consulting neurology for concerns of transient global amnesia. Usually transient global amnesia lasts between 1 and 10 hours. Patient reporting that she does not have any recollection of the last 5 days of events. Patient also with a history of migraines with aura, which could cause some similar to transient global amnesia, but her symptoms lasted for 4+ days. Patient is not on any migraine prophylaxis. Patient also with multiple stressors along with difficulty sleeping. Patient also with no risk factors for stroke. Patient is young and no medical history. I will recommend psychiatry evaluation along with MRI brain without contrast as outpatient. We'll consider starting patient on a tricyclic antidepressant such as amitriptyline for migraine prophylaxis and her difficulty with sleeping. But it is a category C drug. Patient considering . Patient to follow up with a neurologist within 2-3 weeks of discharge after her MRI brain. Neurology will sign off at this time Past Medical History Past Medical History: No Reported History History of Any Multi-Drug Resistant Organisms: None Reported Past Surgical History: Appendectomy Additional Past Surgical History / Comment(s): Rt ACL reconstruction Past Anesthesia/Blood Transfusion Reactions: No Reported Reaction Past Psychological History: No Psychological Hx Reported Smoking Status: Never smoker Past Alcohol Use History: Occasional Past Drug Use History: None Reported - Past Family History Mother Family Medical History: Cancer Additional Family Medical History / Comment(s): Lung cancer Medications and Allergies Home Medications Medication Instructions Recorded Confirmed Type No Known Home Medications 05/16/19 05/16/19 History Allergies Allergy/AdvReac Type Severity Reaction Status Date / Time No Known Allergies Allergy Verified 05/16/19 14:06 Physical Examination - Vital Signs Vital Signs: Vital Signs Temp Pulse Resp BP Pulse Ox 05/17/19 09:00 97.8 F 96 94 H 114/76 98 05/17/19 04:00 97.8 F 78 16 91/58 98 05/17/19 00:00 98.2 F 85 18 94/55 97 05/16/19 20:00 98.6 F 91 16 90/57 97 05/16/19 17:30 98.2 F 82 14 124/83 98 05/16/19 16:39 98.8 F 84 18 113/64 97 05/16/19 14:41 98.4 F 86 18 103/62 99 05/16/19 12:22 98.5 F 85 18 111/73 98 Intake and Output 05/16/19 05/17/19 05/17/19 22:59 06:59 14:59 Other: # Voids 2 1 Weight 77.4 kg Results - Laboratory Findings CBC and BMP: 05/17/19 05:04 05/17/19 05:04 Abnormal Lab Findings: Abnormal Labs 05/16/19 05/16/19 05/16/19 12:52 12:52 14:30 Neutrophils # 8.4 H Chloride 108 H Carbon Dioxide 19 L HDL Cholesterol Ur Specific [place] 1.042 H Urine Ketones 1+ H 05/17/19 05:04 Neutrophils # Chloride 108 H Carbon Dioxide HDL Cholesterol 31 L Ur Specific [place] Urine Ketones
--- NOTE | 2019-05-17 16:39 | P.CN ---
Psychiatric Consult - . Consult date: 05/17/19 Consult:: 05/17/19 16:16 IDENTIFYING DATA: This patient is a 28-year-old female currently engaged lives with her iraida, her 1-year-old son in the house. HISTORY OF PRESENT ILLNESS: The patient was brought into the hospital by her fikrupa after complaints of memory loss the past 4 days. Patient states that her memory has been "fragmented" and has a lot of blanks that she is trying to fill in with the support of her family and her fikrupa. Patient remembers going to affair with her iraida which is her last memory. She states that she has no clear memory from Tuesday up until yesterday. She states that yesterday she called her fianc while she was in the car driving around town and parked the car in the driveway and went inside the house leaving the car running which alerted her boyfriend to take her into the hospital for evaluation. Patient spoke of many different stressors in her life including trying to raise her 1-year-old son and working full-time as a nurse. She also states that her fikrupa is currently in nursing school and has a busy schedule. Patient claims that she has a lot of responsibility and feels overwhelmed at times. Patient spoke of and had a picture of her mother at the bedside. She states that her mother approximately 3 years ago from lung cancer. Patient claims that at that time she didn't know much about her health and opted instead of telling her mother to undergo chemo instead to pursue an alternative treatment in [place] which was not very effective. Patient has regret about this and thinks about her mother daily. She states that since her mother her dad has been bad mouthing her and went off to another woman and states that her brother hasn't been very supportive with all this. Patient also also indicates that approximately 1 week ago she found out that she is unexpectedly. She states that she told her fianc at that time that she felt that she could not go through with the and wanted an . Currently when asked about the , patient states that given her health, stress level and responsibility of raising her 1-year-old son she states that "I don't think it would be fair and responsible to go through with this right now". Patient states that her mood has been "irritable" and describes anxiety and feeling overwhelmed in the past few months, however remains optimistic about change and claims that her mood may improve in the near future as she is working through arranging her wedding for next July. At this time patient denies any suicidal or homical ideations, intent or plan. Patient denies any auditory, visual hallucinations and denies any paranoia or delusions. PAST PSYCHIATRIC HISTORY: Admits to seeing a therapist for the past few weeks on a weekly basis. However feels that it was not a good fit and feels disappointed and is in the process of changing therapists. Patient denies being on any previous psychiatric medications, denies any [facility] attempts or [facility]. PAST MEDICAL HISTORY: Denies. ALLERGIES: No known drug allergies. CHEMICAL DEPENDENCY HISTORY: Admits to occasional alcohol use denies any nicotine use. Denies any other recreational drugs.. FAMILY PSYCHIATRIC HISTORY: denies. LEGAL HISTORY: denies. SOCIAL HISTORY: Currently engaged lives with her fianc and 1-year-old son. Was born and raised in [facility], completed college and now works as a nurse. MENTAL STATUS EXAM: General Appearance: Patient appears to be stated age is alert, pleasant, and cooperative. Patient is lying in bed with no acute distress Behavior: Patient is calmly seated without any agitated behavior. Speech: Patient's speech is fluent and nonpressured. Mood/Affect: Patient reports their mood is irritable, affect is congruent Suicidality/Homicidality: Patient denies having any suicidal or homicidal ideation intent or plan. Perceptions: Patient denies any auditory or visual hallucinations. Though content/process: There is no evidence of any delusional thought content and thought process is linear and goal-directed. Memory and concentration: AOX3, Can spell "WORLD" backwards, subtracts serial 7s accurtalely, 3/3 memory recall. Names objects correctly and good judgemnt and fund of knowledge. Judgment and insight: fair IMPRESSIONS: Adjustment disorder, mixed anxiety and depressed mood Rule out transient global amnesia. PLAN: -At this time patient patient does NOT meet criteria for inpatient psychiatric admission. -It appears that patient has been under significant amount of stress coupled with adjustment from losing her mother, losing family support, and recent news of being unexpectedly while also attempting to work full-time and carry the stress of raising her 1-year-old son. Spoke with patient different coping strategies and ways to reduce stress in her life. -Encourage patient to follow up with her appointment with her new therapist. -Discussed with patient the option for antidepressant medications to help with mood/anxiety. SSRIs were discussed however patient would like to wait on starting new medication the hospital given the risks of starting while she is grounded . Discussed with patient specifically starting Lexapro 5 mg daily in the future, patient verbally understood and agreed. -Sap Developer spoke with patient about her upcoming elective appointment and her thoughts and feelings associated with this and possible . -MRI pending as an outpatient with outpatient neuro follow-up. -Psychiatry will sign off at this point Thank you for the consult 05/17/19 16:28
[2019-05-17 18:06] VITALS: BP 105/76; PULSE 82; RESP 16; TEMP 98.3
--- NOTE | 2019-05-17 18:27 | PN ---
PROGRESS NOTE DATE OF SERVICE: 05/17/2019. This 28-year-old woman who was admitted with transient global amnesia is being closely monitored at this time. Neurology has seen the patient. Neurology recommended psychiatric evaluation as well MRI as an outpatient. No chest pain. No palpitations. No fever. PHYSICAL EXAM: Alert and oriented x2. Pulse is 78. Blood pressure 91/58, respirations 16, temperature 97.8, pulse ox 98% on room air. HEENT: Conjunctivae normal. Oral mucosa moist. NECK: No JVD. No carotid bruit. No lymph node enlargement. CARDIOVASCULAR: S1, S2 muffled. RESPIRATORY: Breath sounds diminished in the bases. No rhonchi. No crackles. ABDOMEN: Soft, nontender. NERVOUS SYSTEM: No focal deficits. LAB STUDIES: CBC, CMP within normal limits. Cholesterol panel is within normal limits. ASSESSMENT: 1. Transient amnesia, memory loss, possible fugue state or TGA. 2. Multiple social stressors. 3. Decreased CO2, improved. 4. History of right ACL reconstruction. RECOMMENDATIONS AND DISCUSSION: Recommend to continue current medications, management and symptomatic treatment. Otherwise, we will continue with Psychiatric evaluation. MRI recommended by Psychiatry. Further recommendations to follow. MMODL / IJN: [id number] /
--- NOTE | 2019-05-18 02:15 | DS ---
DISCHARGE SUMMARY FINAL DIAGNOSES: 1. Possibly transient global amnesia or memory loss. 2. Multiple social stressors. 3. Adjustment disorder, mixed anxiety, depressed mood. 4. Decreased CO2, present on admission improved. 5. History of right ACL reconstruction. DISCHARGE DISPOSITION: The patient will be discharged in stable condition with guarded prognosis after clearance from Neurology and Psychiatry. HISTORY OF PRESENT ILLNESS: This 28-year-old woman with a past medical history of multiple medical problems was admitted with transient memory loss. Patient monitored closely and initially all the initial evaluations came as negative and Psychiatry and Neurology saw the patient, recommend the patient to be discharged. The patient will be discharged in stable condition with guarded prognosis. Outpatient MRI has been suggested. On exam vitals stable. Cardiovascular: S1, S2 muffled. Respiration: Breath sounds diminished in the bases. ABDOMEN: Soft. NERVOUS SYSTEM: No focal deficits. The patient is medically capable of making her decisions at this time. Patient does not have any focal neurological symptoms. DISCHARGE/ RECOMMENDATIONS: Follow up with primary physician. Follow up with neurology as recommended. Follow up with Psychiatry recommendations also. MMODL / IJN: [id number] /
== END 2019-05-17 18:44 | disposition home or self-care (01) | DRG 72 ==
LOC: EC 11:56 → 3SCARD 14:18 → EEVIPCON 14:18 → 2SICU 16:23 → OBSVTOIN 05-17 07:45
PROVIDERS: ADMIT Hospitalist; ATTEND Hospitalist
DX: G45.4 Transient global amnesia (principal); F43.23 Adjustment disorder with mixed anxiety and depressed mood; Z33.1 Pregnant state, incidental; Z3A.00 Weeks of gestation of pregnancy not specified; Z98.890 Other specified postprocedural states; Z86.69 Personal history of other diseases of the nervous system and sense organs; Z80.1 Family history of malignant neoplasm of trachea, bronchus and lung; Z80.8 Family history of malignant neoplasm of other organs or systems; Z82.0 Family history of epilepsy and other diseases of the nervous system
CPT/HCPCS: 36415; 70450; 70496; 70498; 71046; 80048; 80053; 80061; 80306; 80320; 80329; 81003; 81025; 82140; 83520; 83735; 84100; 84484; 85025; 85379; 85610; 85730; 93005; 93306; 96360; 96361; 99291

== ENCOUNTER 2023-02-05 22:52 | Outpatient (CLI) | payer OTHER ==
[2023-02-05 23:22] LABS: Appearance,Urine Clear (Clear); Bilirubin,Urine Negative (Negative); Blood,Urine Negative (Negative); Color,Urine Light Yellow; Glucose,Urine (UA) Negative (Negative); Ketones,Urine Negative (Negative); Leukocyte Esterase,Urine Negative (Negative); Nitrite,Urine Negative (Negative); PH, Urine 6.5 (5.0-8.0); Protein,Urine Negative (Negative); Specific Gravity,Urine 1.009 (1.001-1.035); Urobilinogen,Urine <2.0 mg/dL (<2.0)
[2023-02-06 00:04] VITALS: BP 115/70; PULSE 80; RESP 16; TEMP 97.9
--- NOTE | 2023-02-22 14:04 | P.MSEPDOC ---
Presenting Problems - Arrival Data Date of Arrival on Unit: 02/05/23 Time of Arrival on Unit: 22:52 Mode of Transport: Ambulatory - Complaint OB-Reason for Admission/Chief Complaint: Pain Comment: Patient presents to triage with complaints of lower back and lower abdominal pain. Medical History - Information : 2 Para: 1 - Gestational Age Gestational Age by ALHAJI (wks/days): 22 Weeks and 5 Days Review of Systems - Review of Systems Constitutional: No problems Breast: No problems ENT: No problems Cardiovascular: No problems Respiratory: No problems Gastrointestinal: No problems Genitourinary: No problems Musculoskeletal: No problems Neurological: No problems Skin: No problems Vital Signs - Temperature Temperature: 97.9 F Temperature Source: Temporal Artery Scan - Pulse Pulse Oximetery Pulse Rate: 80 Pulse Assessment Method: Pulse Oximetry - Respirations Respiratory Rate: 16 Oxygen Delivery Method: Room Air O2 Sat by Pulse Oximetry: 100 - Blood Pressure Right Arm Blood Pressure: 115/70 Blood Pressure Mean: 85 Blood Pressure Source: Automatic Cuff Maternal Triage Index - Maternal Triage Index Presenting for scheduled procedure w/no complaint: No - Stat/Priority 1 Stat Priority 1: No - Urgent/Priority 2 Urgent Priority 2: No - Prompt/Priority 3 Prompt Priority 3: No - Non-Urgent/Priority 4 Non-Urgent Priority 4: Yes Criteria Met for Priority 4: Patient presents to triage with complaints of lower back and lower abdominal pain. Disposition - Disposition OB Disposition: Discharge to home Discharge Date: 02/06/23 Discharge Time: 00:04 I agree with the RN Medical Screening Exam: Yes Physician's MSE Comment: I have neither seen nor examined the patient Case reviewed; plan agreed upon as documented in EMR&OBIX.: Yes Diagnosis: RELATED CONDITIONS, UNSPECIFIED, SECOND TRIMESTER
== END 2023-02-06 00:05 ==
LOC: FBPOP 22:52
PROVIDERS: ATTEND Obstetrics & Gynecology
DX: O26.892 Other specified pregnancy related conditions, second trimester (principal); Z3A.22 22 weeks gestation of pregnancy
CPT/HCPCS: 81003; 99213

== ENCOUNTER 2023-06-02 02:30 | Inpatient (IN) | payer OTHER ==
[2023-06-02] MEDS ORDERED: miSOPROStoL 200 MCG TAB PO PRN (02:59)
[2023-06-02] MEDS ORDERED: OXYTOCIN 10 UNIT/ML 1 ML VIAL IM PRN (02:59)
[2023-06-02] MEDS ORDERED: LIDOCAINE 0.5% (PF) 5 MG/ML (50 ML SDV) SQ PRN (02:59)
[2023-06-02] MEDS ORDERED: TERBUTALINE 1 MG/ML VIAL SQ PRN (02:59)
[2023-06-02] MEDS ORDERED: METHYLERGONOVINE 0.2 MG/ML 1 ML AMP IM PRN (02:59)
[2023-06-02] MEDS ORDERED: TRANEXAMIC 1,000 MG/100ML-NACL 1,000 MG in EMPTY BAG 1 BAG IV PRN (02:59)
[2023-06-02] MEDS ORDERED: CARBOPROST TROMETHAMINE 250 MCG/ML 1 ML AMP IM PRN (02:59)
[2023-06-02] MEDS: LACTATED RINGERS 1,000 ML IV SCH ×2 (03:00→03:45)
[2023-06-02 03:56] LABS: Basophils % (A) 0 %; Eosinophils # (A) 0.1 k/uL (0-0.7); Eosinophils % (A) 1 %; HCT 34.7 % (34.0-46.0); HGB 12.4 gm/dL (11.4-16.0); Lymphocytes # (A) 2.3 k/uL (1.0-4.8); Lymphocytes % (A) 24 %; MCH 32.1 pg (25.0-35.0); MCHC 35.6 g/dL (31.0-37.0); MCV 90.1 fL (80.0-100.0); Mean Platelet Volume 7.1; Monocytes # (A) 0.5 k/uL (0-1.0); Monocytes % (A) 6 %; Neutrophils # (A) 6.5 k/uL (1.3-7.7); Neutrophils % (A) 67 %; Platelet Count 219 k/uL (150-450); RBC 3.85 m/uL (3.80-5.40); RDW 13.1 % (11.5-15.5); WBC 9.7 k/uL (3.8-10.6)
[2023-06-02] MEDS ORDERED: SODIUM CHLORIDE 0.9% 250 ML BAG ONE (03:56)
[2023-06-02] MEDS ORDERED: fentaNYL (PF) 50 MCG/ML 5 ML AMP ONE (03:56)
[2023-06-02] MEDS ORDERED: ROPIVACAINE 5 MG/ML 30 ML VIAL ONE (03:56)
[2023-06-02] MEDS: OXYTOCIN 30 UNITS/500 ML NS 30 UNIT in SALINE 1 500ML.BAG IV SCH ×2 (08:13→09:21)
[2023-06-02] MEDS ORDERED: HYDROCORTISONE 2.5% RECTAL CREAM 30 GM TUBE RECTAL PRN (08:31)
[2023-06-02] MEDS ORDERED: ACETAMINOPHEN TAB 325 MG TAB PO PRN (08:31)
[2023-06-02] MEDS ORDERED: diphenhydrAMINE 50 MG/ML 1 ML VIAL IVP PRN ×2 (08:31)
[2023-06-02] MEDS ORDERED: SIMETHICONE 80 MG CHEWABLE PO PRN (08:31)
[2023-06-02] MEDS ORDERED: diphenhydrAMINE 25 MG CAP PO PRN (08:31)
[2023-06-02] MEDS ORDERED: diphenhydrAMINE 50 MG CAP PO PRN (08:31)
[2023-06-02] MEDS ORDERED: LANOLIN CREAM 5 GM TUBE TOPICAL PRN (08:31)
[2023-06-02] MEDS ORDERED: ZOLPIDEM 5 MG TAB PO PRN (08:31)
--- NOTE | 2023-06-02 08:31 | P.PROBDLV ---
Vaginal Delivery Note - . Vaginal Delivery Note: 32-year-old 011 that presents to labor and delivery with complaints of regular painful contractions. Patient was noted to have rupture of membranes, positive amnio sure. Patient was admitted to labor and delivery and requested epidural placement. Epidural was placed without difficulty by the anesthesia department. Patient made progress through the night eventually noted to be completely dilated at 637. Patient underwent amniotomy at that time and clear fluid was obtained. Patient had no urge to push therefore was left down. Patient began pushing and had a normal spontaneous vaginal delivery of a viable male infant in occiput anterior presentation at 810, weight of 6 lbs. 12 oz., Apgars of 9 and 9 at one and 5 minutes respectively. Patient did sustain a first-degree vaginal laceration during delivery which was repaired with 2 [id number] sutures of 0 Vicryl. Hemostasis was appreciated after delivery. Uterus is noted to be firm and below the umbilicus. Estimated blood loss 100 mL Bladder was drained via red rubber catheter after delivery for 100 mL. All counts were noted to be correct 2 patient and tolerated delivery well and are resting comfortably
[2023-06-02] MEDS: PRENATAL VIT-IRON-FOLIC ACID 1 EACH TABLET PO SCH (09:24)
[2023-06-02] MEDS: IBUPROFEN 600 MG TAB PO SCH ×3 (09:25→22:13)
--- NOTE | 2023-06-02 11:21 | P.HPOB ---
History of Present Illness H&P Date: 06/02/23 Chief Complaint: IUP at 36 6/7 weeeks, active labor This is a 32-year-old at 38-6/7 weeks that presents to labor and delivery with complaints of regular painful contractions since midnight. Patient states she contracted irregularly through the day and they became more irregular through the night. Patient noted some bloody show and presented to the hospital. Patient has been receiving routine care which has been essentially uncomplicated. On bloodwork this patient is a blood type of O-, rubella status immune, B surface antigen negative, HIV negative, RPR nonreactive, group beta strep cultures negative. Review of Systems Constitutional: Denies chills, Denies fatigue, Denies fever Ears, nose, mouth and throat: Denies headache Cardiovascular: Reports leg edema Respiratory: Denies dyspnea Gastrointestinal: Denies constipation, Denies diarrhea, Denies nausea, Denies vomiting Genitourinary: Reports Past Medical History Past Medical History: No Reported History History of Any Multi-Drug Resistant Organisms: None Reported Past Surgical History: Appendectomy Additional Past Surgical History / Comment(s): Rt ACL reconstruction Past Anesthesia/Blood Transfusion Reactions: No Reported Reaction Past Psychological History: No Psychological Hx Reported Smoking Status: Never smoker Past Alcohol Use History: Occasional Past Drug Use History: None Reported - Past Family History Mother Family Medical History: Cancer Additional Family Medical History / Comment(s): Lung cancer Medications and Allergies Home Medications Medication Instructions Recorded Confirmed Type Vit No.179/Iron/Folic 1 day 06/02/23 History [ Tablet] Allergies Allergy/AdvReac Type Severity Reaction Status Date / Time No Known Allergies Allergy Verified 02/05/23 23:00 Exam Osteopathic Statement: *. No significant issues noted on an osteopathic structural exam other than those noted in the History and Physical/Consult. Vital Signs Temp Pulse Resp BP Pulse Ox 06/02/23 02:59 96.6 F L 75 16 113/76 97 Intake and Output 06/01/23 06/02/23 06/02/23 22:59 06:59 14:59 Other: Weight 83.915 kg Targeted physical exam is performed in this date and training generalist a well-nourished well-developed female in no acute distress, patient did receive an epidural prior to my presentation. Breathing is noted to nonlabored, heart has a regular rate and rhythm, abdomen is gravid, heart tones noted to be category 1 and she is edgardo every 2-3 minutes, on cervical exam she is completely dilated with a bulging bag of water, amniotomy is performed and copious clear fluid was obtained. Results Result Diagrams: 06/02/23 03:10 Assessment and Plan (1) Term Current Visit: Yes Status: Acute Code(s): Z34.90 - ENCNTR FOR SUPRVSN OF NORMAL , UNSP, UNSP TRIMESTER SNOMED Code(s): 84999836 (2) Active labor Current Visit: Yes Status: Acute Code(s): KYS3391 - SNOMED Code(s): 046510671 Plan: 32-year-old at 38-6/7 weeks presents in active labor. Patient was noted to be 3 cm with a positive amnisure. Patient was noted to be edgardo every 2-3 minutes and very uncomfortable with contractions. Patient was admitted and epidural was requested. Epidural was placed without difficulty by the anesthesia department. Patient labored through the night. Patient is completely dilated at this point, we are awaiting urged push. Anticipate spontaneous vaginal delivery.
[2023-06-02] MEDS: SENNOSIDES-DOCUSATE SODIUM 1 EACH TAB PO SCH (20:13)
[2023-06-03] MEDS: IBUPROFEN 600 MG TAB PO SCH ×2 (00:24→09:52)
[2023-06-03 00:50] VITALS: RESP 16
--- NOTE | 2023-06-03 08:51 | P.DS ---
Providers Date of admission: 06/02/23 02:48 Expected date of discharge: 06/03/23 Attending physician: Cherry Cassidy Primary care physician: Stated None - Discharge Diagnosis(es) (1) Term Current Visit: Yes Status: Acute (2) Active labor Current Visit: Yes Status: Acute (3) Status post vaginal delivery Current Visit: Yes Status: Acute Hospital Course: This is a 32-year-old 011 that presented to labor and delivery at 38 and 6 with complaints of regular painful contractions. Patient stated contractions started around midnight the increased in nature and she presented to labor and delivery. Patient was noted to be in active labor upon presentation to triage. Patient was admitted and requested epidural placement. Epidural was placed without difficulty by the anesthesia department. Patient progressed to complete and had minimal urge to push therefore she was allowed to labor down. Patient slowly began to feel the urge to push began pushing and had a normal spontaneous vaginal delivery of a viable male infant at 810, weight of 6 lbs. 12 oz., Apgars of 9 and 9 at one and 5 minutes respectively. Patient did sustain a first- degree vaginal laceration during delivery. This laceration was repaired in the usual fashion with 3-0 Rapide. Hemostasis was noted after repair. Patient's post course has been uneventful. On this day #1 she is ambulating and voiding without difficulty. She is tolerating a regular diet without nausea or vomiting. Since her pain is well-controlled. She denies concerns and would like discharge home at 24 hours. Patient Condition at Discharge: Good Plan - Discharge Summary New Discharge Prescriptions: No Action Vit No.179/Iron/Folic [ Tablet] 1 day Discharge Medication List Vit No.179/Iron/Folic [ Tablet] 1 day 06/02/23 [History] Follow up Appointment(s)/Referral(s): Cherry Cassidy DO [Doctor of Osteopathic Medicine] - 4 Weeks Patient Instructions/Handouts: Vaginal Delivery (DC), Vaginal Delivery (GEN) Activity/Diet/Wound Care/Special Instructions: No tub baths or intercourse until 6 weeks . Patient is counseled on [id number] ibuprofen as needed for pain. Patient is called the office to make a routine visit in 4 weeks. She she had any concerns prior to her visit she is urged to call the office. bleeding is discussed with patient. Discharge Disposition: HOME SELF-CARE
[2023-06-03] MEDS: PRENATAL VIT-IRON-FOLIC ACID 1 EACH TABLET PO SCH (09:51)
[2023-06-03] MEDS: SENNOSIDES-DOCUSATE SODIUM 1 EACH TAB PO SCH (09:52)
[2023-06-03 11:10] VITALS: BP 91/46; PULSE 86; TEMP 98.5
== END 2023-06-03 12:50 | disposition home or self-care (01) | DRG 807 ==
LOC: FBPOP 02:30 → 4FBP 02:48
PROVIDERS: ADMIT Obstetrics & Gynecology Obstetrics; ATTEND Obstetrics & Gynecology Obstetrics
PROC: 0HQ9XZZ Repair Perineum Skin, External Approach (ICD-10-PCS; principal; 2023-06-02)
PROC: 10907ZC Drainage of Amniotic Fluid, Therapeutic from Products of Conception, Via Natural or Artificial Opening (ICD-10-PCS; principal; 2023-06-02)
PROC: 10E0XZZ Delivery of Products of Conception, External Approach (ICD-10-PCS; principal; 2023-06-02)
DX: O70.0 First degree perineal laceration during delivery (principal); Z3A.38 38 weeks gestation of pregnancy; Z37.0 Single live birth
CPT/HCPCS: 59025; 84112; 85025; 86850; 86870; 86880; 86900; 86901; 99213

== ENCOUNTER 2023-11-11 19:57 | Observation (INO) | payer OTHER ==
--- NOTE | 2023-11-11 20:43 | ED ---
General Adult HPI - General Chief complaint: Arrhythmia/Palpitations Stated complaint: SVT Time Seen by Provider: 11/11/23 20:00 Source: patient, EMS, RN notes reviewed, old records reviewed Mode of arrival: EMS Limitations: altered mental status - History of Present Illness Initial comments: This is a 33-year-old female presents to the emergency department after being transferred from [facility]. The ER physician contacted us for the transfer and we took the report from him. Patient states she has had SVT in the past typically when she was but she had a baby 5 months ago when she on control she is not currently . Patient states at about 430 today her heart started racing to [place] 150 beats a minute and she went to the emergency department they gave her adenosine and it did not convert her and then after about 15 minutes she converted on her own. Patient states she has been asymptomatic since but they were concerned because she did not convert with adenosine and they wanted to be transferred and have cardiology see her. Patient currently is asymptomatic patient was short of breath and a little lightheaded when it occurred earlier but no longer any symptoms. - Related Data Home Medications Medication Instructions Recorded Confirmed Vit No.179/Iron/Folic 1 day 06/02/23 [ Tablet] Allergies Allergy/AdvReac Type Severity Reaction Status Date / Time No Known Allergies Allergy Verified 02/05/23 23:00 Review of Systems ROS Statement: Those systems with pertinent positive or pertinent negative responses have been documented in the HPI. ROS Other: All systems not noted in ROS Statement are negative. Past Medical History Past Medical History: No Reported History Additional Past Medical History / Comment(s): SVT History of Any Multi-Drug Resistant Organisms: None Reported Past Surgical History: Appendectomy Additional Past Surgical History / Comment(s): Rt ACL reconstruction Past Anesthesia/Blood Transfusion Reactions: No Reported Reaction Past Psychological History: No Psychological Hx Reported Smoking Status: Never smoker Past Alcohol Use History: Occasional Past Drug Use History: None Reported - Past Family History Mother Family Medical History: Cancer Additional Family Medical History / Comment(s): Lung cancer General Exam - General Exam Comments Initial Comments: GENERAL: Patient is well-developed and well-nourished. Patient is nontoxic and well- hydrated and is in no acute distress. ENT: Neck is soft and supple. No significant lymphadenopathy is noted. Oropharynx is clear. Moist mucous membranes. Neck has full range of motion without eliciting any pain. EYES: The sclera were anicteric and conjunctiva were pink and moist. Extraocular movements were intact and pupils were equal round and reactive to light. Eyelids were unremarkable. PULMONARY: Unlabored respirations. Good breath sounds bilaterally. No audible rales rhonchi or wheezing was noted. CARDIOVASCULAR: There is a regular rate and rhythm without any murmurs gallops or rubs. ABDOMEN: Soft and nontender with normal bowel sounds. SKIN: Skin is clear with no lesions or rashes and otherwise unremarkable. NEUROLOGIC: Patient is alert and oriented x3. Cranial nerves II through XII are grossly intact. Motor and sensory are also intact. Normal speech, volume and content. Symmetrical smile. MUSCULOSKELETAL: Normal extremities with adequate strength and full range of motion. LYMPHATICS: No significant lymphadenopathy is noted PSYCHIATRIC: Normal psychiatric evaluation. Limitations: altered mental status Course Vital Signs 11/11/23 19:59 Temperature 97.8 F Pulse Rate 91 Respiratory 16 Rate Blood Pressure 111/79 O2 Sat by Pulse 100 Oximetry Medical Decision Making - Medical Decision Making EKG is interpreted by myself EKG shows a sinus rhythm at 92 bpm parable 48 QRS is 90 QT interval 344 QTc is 394. Patient's EKG shows no ST segment ovation or depression. Was pt. sent in by a medical professional or institution (, [facility], CHARGE GANG WEIGHER, urgent care, hospital, or usp...) When possible be specific @ -[facility] transferred the patient to us and we spoke with the ER physician prior to transfer Did you speak to anyone other than the patient for history (EMS, parent, family, police, friend...)? What history was obtained from this source @ -ER physician at [facility] Did you review nursing and triage notes (agree or disagree)? Why? @ -I reviewed and agree with nursing and triage notes Were old charts reviewed (outside hosp., previous admission, EMS record, old EKG, old radiological studies, urgent care reports/EKG's, usp records)? Report findings @ -I reviewed the charts from [facility] as well as the EKGs Differential Diagnosis (chest pain, altered mental status, abdominal pain women, abdominal pain men, vaginal bleeding, weakness, fever, dyspnea, syncope, headache, dizziness, GI bleed, back pain, seizure, CVA, palpatations, mental health, musculoskeletal)? @ -Differential Palpitations Ventricular arrhythmias, atrial arrhythmias, myocardial infarction, anemia, thyrotoxicosis, electrolyte imbalance, hypokalemia, pulmonary embolism, pulmonary disease, drugs, alcohol, anxiety, stress.... This is not meant to be an all-inclusive list. EKG interpreted by me (3pts min.). @ -As above X-rays interpreted by me (1pt min.). @ -None done CT interpreted by me (1pt min.). @ -None done U/S interpreted by me (1pt. min.). @ -None done What testing was considered but not performed or refused? (CT, X-rays, U/S, labs)? Why? @ -None What meds were considered but not given or refused? Why? @ -None Did you discuss the management of the patient with other professionals (professionals i.e. , PA, CHARGE GANG WEIGHER, lab, RT, psych nurse, perinatal social worker, geospatial extractor analysis, teacher, major gifts officer, outsole caser)? Give summary @ -I spoke with Dr. Suarez and he agreed to admit the patient Was smoking cessation discussed for >3mins.? @ -No Was critical care preformed (if so, how long)? @ -No Were there social determinants of health that impacted care today? How? (Homelessness, low income, unemployed, alcoholism, drug addiction, transportation, low edu. Level, literacy, decrease access to med. care, mcc, rehab)? @ -No Was there de-escalation of care discussed even if they declined (Discuss DNR or withdrawal of care, Hospice)? DNR status @ -No What co-morbidities impacted this encounter? (DM, HTN, Smoking, COPD, CAD, Cancer, CVA, ARF, Chemo, Hep., AIDS, mental health diagnosis, sleep apnea, morbid obesity)? @ -None Was patient admitted / discharged? Hospital course, mention meds given and route, prescriptions, significant lab abnormalities, going to OR and other pertinent info. @ -Patient was asymptomatic throughout her ED course here I did order TSH as well as drug screen. Dr. Suarez agreed to admit the patient admitted the patient in consult to cardiology Undiagnosed new problem with uncertain prognosis? @ -No Drug Therapy requiring intensive monitoring for toxicity (Heparin, Nitro, Insulin, Cardizem)? @ -No Were any procedures done? @ -No Diagnosis/symptom? @ -Tachycardia Acute, or Chronic, or Acute on Chronic? @ -Acute Uncomplicated (without systemic symptoms) or Complicated (systemic symptoms)? @ -Complicated Side effects of treatment? @ -No Exacerbation, Progression, or Severe Exacerbation? @ -No Poses a threat to life or bodily function? How? (Chest pain, [place], [place], pneumonia, PE, COPD, DKA, ARF, appy, cholecystitis, CVA, Diverticulitis, Homicidal, Suicidal, threat to staff... and all critical care pts) @ -No Disposition Clinical Impression: Tachycardia Disposition: ADMITTED IP TO THIS HOSP Referrals: Jacques Garcia MD [Primary Care Provider] - 1-2 days Time of Disposition: 20:43
[2023-11-11 22:18] LABS: Amphetamine Screen,Urine Not Detected (NotDetected); Barbiturate Screen,Urine Not Detected (NotDetected); Benzodiazepines Screen,Urine Not Detected (NotDetected); Cocaine Screen,Urine Not Detected (NotDetected); Methadone Screen, Urine Not Detected (NotDetected); Opiate Screen,Urine Not Detected (NotDetected); Oxycodone Screen, Urine Not Detected (NotDetected); Phencyclidine Screen,Urine Not Detected (NotDetected); Tricyclic Antidepressant,Urine Not Detected (NotDetected); Urn Cannabinoid Scrn Not Detected (NotDetected)
[2023-11-12] MEDS ORDERED: ASPIRIN 325 MG TAB PO SCH (09:00)
--- NOTE | 2023-11-12 12:58 | P.CRDCN ---
History of Present Illness Consult date: 11/12/23 Consult reason: other (SVT) Chief complaint: tachycardia History of present illness: History of present illness: Patient is a pleasant 33-year-old female with significant past medical history of SVT typically while she was in the past who presented to [facility] with sustained tachycardia. They followed with Dr. Morales however has not seen a hoisting machine operator recently. Reports that yesterday she was driving and felt her heart rate increased and she began to get progressively short of breath, she was close to home so drove home and attempted multiple vagal maneuvers however was unable to break the tachycardia. In the past she has had rare episodes of SVT and has typically been able to break them with the vagal maneuvers. She then went to the emergency department, she was given adenosine x 1 and reports that her heart rate did not slow down at all with this. She then converted to normal rate and rhythm approximately 15 minutes later. 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 Labs reviewed: Troponin was negative initially and now 0.042, potassium 4.1 creatinine 0.89, BNP 43. TSH normal. EKG shows sinus rhythm 92 bpm. She had a prior echocardiogram 05/2019 with EF 55-60%. She has not had a prior stress test. She is currently feeling back to her baseline other than tired. She denies any chest pain or pressure. Denies any shortness of breath, dizziness, syncope. REVIEW OF SYSTEMS: No fever or chills. No cough or expectoration. No diaphoresis. Patient denies headache, dizziness, blurred vision, double vision. Patient denies any stomach discomfort. No nausea, vomiting. No hematochezia. No hematemesis. Denies any black stools or blood in his stools. Denies dysuria or hematuria. No muscle weakness or numbness. No chest pain or pressure. PHYSICAL EXAMINATION: This is a 33-year-old female in no apparent distress at the time of my examination. HEENT: Head is atraumatic, normocephalic. Pupils are equal, round. Sclerae anicteric. Conjunctivae are clear. Mucous membranes of the mouth are moist. Neck is supple. There is no jugular venous distention. No carotid bruit is heard. CHEST EXAMINATION: Lungs are clear to auscultation. No chest wall tenderness is noted on palpation or with deep breathing. HEART EXAMINATION: Heart regular rate and rhythm. S1, S2 heard. No murmurs, gallops or rub. ABDOMEN: Soft, nontender. Bowel sounds are heard. EXTREMITIES: 2+ peripheral pulses with no evidence of peripheral edema and no calf tenderness noted. NEUROLOGIC EXAMINATION: Patient is awake, alert and oriented x3. IMPRESSION AND PLAN: Palpitations AVNRT Hx SVT Elevated trop, likely related to tachycardia PLAN: Discussed option for AVNRT ablation for remote computer terminal operator management. Recommend outpatient work up with ECHO. OK to take cardizem 30mg PRN if she has another episode. OK to discharge home from cardiology standpoint. Follow up in clinic in 1 week. I am dictating on behalf of Dr. Juan Pablo Wise's history/physical and assessment/plan. Past Medical History Past Medical History: No Reported History Additional Past Medical History / Comment(s): SVT History of Any Multi-Drug Resistant Organisms: None Reported Past Surgical History: Appendectomy Additional Past Surgical History / Comment(s): Rt ACL reconstruction Past Anesthesia/Blood Transfusion Reactions: No Reported Reaction Past Psychological History: No Psychological Hx Reported Smoking Status: Never smoker Past Alcohol Use History: Occasional Past Drug Use History: None Reported - Past Family History Mother Family Medical History: Cancer Additional Family Medical History / Comment(s): Lung cancer Medications and Allergies Home Medications Medication Instructions Recorded Confirmed Type Enskyce 0.15mg-30mcg 1 tab PO DAILY 11/11/23 11/11/23 History Allergies Allergy/AdvReac Type Severity Reaction Status Date / Time No Known Allergies Allergy Verified 11/11/23 21:40 Physical Exam Vitals: Vital Signs Temp Pulse Resp BP Pulse Ox 11/12/23 09:30 62 16 96/64 96 11/12/23 07:20 98.5 F 67 17 111/75 96 11/12/23 04:00 70 17 104/73 96 11/12/23 00:00 79 13 94/66 96 11/11/23 22:33 83 18 108/74 97 11/11/23 19:59 97.8 F 91 16 111/79 100 Intake and Output 11/11/23 11/12/23 11/12/23 22:59 06:59 14:59 Other: Weight 70.307 kg Results Cardiac Enzymes 11/11/23 11/12/23 Range/Units 21:00 00:09 Troponin I 0.033 0.042 H* (0.000-0.034) ng/mL Current Medications Generic Name Dose Route Start Last Admin Trade Name Freq PRN Reason Stop Dose Admin Aspirin 325 mg 11/12/23 09:00 11/12/23 08:57 Aspirin 325 Mg Tab PO 325 mg DAILY SARABJIT Administration Intake and Output 11/11/23 11/12/23 11/12/23 22:59 06:59 14:59 Other: Weight 70.307 kg
[2023-11-12 13:27] LABS: Chol/HDL Ratio 3.63 Ratio; LDL Cholesterol,Calculated 85.6 mg/dL (0.0-131.0)
--- NOTE | 2023-11-12 15:23 | P.HPIM ---
History of Present Illness H&P Date: 11/12/23 Chief Complaint: Heart racing This is a pleasant 33-year-old patient, follows with Dr. Jacques Garcia. Normally in good health. Patient works as a ER nurse on a shift foreman. Patient was "driving home she felt her heart racing. And suddenly the heart rate started to become worse. Became a bit short of breath. No perspiration or dizziness. Went to the ER. Patient is found to be in SVT. Was given a dose of adenosine. After 15 minutes went to sinus rhythm. Patient does drink 16 ounces 2 cans of Monster on her shifts. Denies use of any other recreational drugs. Patient did have SVT with of both her previous pregnancies. And 1 afterwards. Review of systems: GEN.: Tired EYES: None HEENT: None NECK: None RESPIRATORY: None CARDIOVASCULAR: N as above GASTROINTESTINAL: None GENITOURINARY: None MUSCULOSKELETAL: None LYMPHATICS: None HEMATOLOGICAL: None PSYCHIATRY: None NEUROLOGICAL: None Social history: . Works as a nurse at [employer]. Alcohol occasionally. No other recreational drugs. Physical examination: VITAL SIGNS: 98.5, 67, 17, 111/75, 96% room air GENERAL: BMI 36.6, laying in bed awake comfortable. EYES: Pupils equal. Conjunctiva roxana l. HEENT: External appearance of nose and ears normal, oral cavity grossly normal. NECK: JVD not raised; masses not palpable. HEART: First and second heart sounds are normal; no edema. LUNGS: Respiratory rate normal; clear to auscultation. ABDOMEN: Soft, nontender, liver spleen not palpable, no masses palpable. PSYCH: Alert and oriented x3; mood and affect roxana l. MUSCULOSKELETAL:No Clubbing/cyanosis;muscles-grossly intact NEUROLOGICAL: Cranial nerves grossly intact; no facial asymmetry, power and sensation grossly intact. LYMPHATICS: No lymph nodes palpable in the axilla and neck INVESTIGATIONS, reviewed in the clinical context: Troponin I 0.033, 0.042 Triglycerides 195 LDL 85.6 TSH 1.14 Urine drug screen: Negative EKG tracing personally reviewed by me-normal sinus rhythm EKG from [facility]: SVT Assessment and plan: -Paroxysmal SVT. Symptomatic. Patient felt heart racing and palpitation and short of breath. Patient was given adenosine. Patient is at at least 3 prior episodes doses rather spaced out. With both her prior pregnancies. Only precipitating factor is patient does drink 2 monster drinks 16 ounce on a shift foreman. Telemetry. Cardiology consulted. -Troponin leak from SVT. Cardiology consulted. Telemetry. Patient advised against use of caffeine type drinks including monster. Past Medical History Past Medical History: No Reported History Additional Past Medical History / Comment(s): SVT History of Any Multi-Drug Resistant Organisms: None Reported Past Surgical History: Appendectomy Additional Past Surgical History / Comment(s): Rt ACL reconstruction Past Anesthesia/Blood Transfusion Reactions: No Reported Reaction Past Psychological History: No Psychological Hx Reported Smoking Status: Never smoker Past Alcohol Use History: Occasional Past Drug Use History: None Reported - Past Family History Mother Family Medical History: Cancer Additional Family Medical History / Comment(s): Lung cancer Medications and Allergies Home Medications Medication Instructions Recorded Confirmed Type Enskyce 0.15mg-30mcg 1 tab PO DAILY 11/11/23 11/11/23 History Diltiazem Oral [Cardizem Oral] 30 mg PO Q8H PRN #15 tab 11/12/23 Rx Allergies Allergy/AdvReac Type Severity Reaction Status Date / Time No Known Allergies Allergy Verified 11/11/23 21:40 Physical Exam Vitals: Vital Signs Temp Pulse Resp BP Pulse Ox 11/12/23 09:30 62 16 96/64 96 11/12/23 07:20 98.5 F 67 17 111/75 96 11/12/23 04:00 70 17 104/73 96 11/12/23 00:00 79 13 94/66 96 11/11/23 22:33 83 18 108/74 97 11/11/23 19:59 97.8 F 91 16 111/79 100 Intake and Output 11/11/23 11/12/23 11/12/23 22:59 06:59 14:59 Other: Weight 70.307 kg Results Labs: Abnormal Lab Results - Last 24 Hours (Table) 11/12/23 Range/Units 00:09 Troponin I 0.042 H* (0.000-0.034) ng/mL
--- NOTE | 2023-11-12 15:25 | P.DS ---
Providers Date of admission: 11/11/23 20:37 Expected date of discharge: 11/12/23 Attending physician: Landon Suarez Consults: 11/11/23 20:45 Consult Physician Urgent Consulting Provider: [facility] Consult Reason/Comments: Tachycardia Do you want consulting provider notified?: Yes Primary care physician: [facility] Course: Chief Complaint: Heart racing This is a pleasant 33-year-old patient, follows with Dr. Jacques Garcia. Normally in good health. 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 Patient was "driving home she felt her heart racing. And suddenly the heart rate started to become worse. Became a bit short of breath. No perspiration or dizziness. Went to the ER. Patient is found to be in SVT. Was given a dose of adenosine. After 15 minutes went to sinus rhythm. Patient does drink 16 ounces 2 cans of Monster on her shifts. Denies use of any other recreational drugs. Patient did have SVT with of both her previous pregnancies. And 1 afterwards. Patient was seen by Dr. Wise from cardiology. Plan is for patient to have AVNRT ablation is outpatient for long-term management. Outpatient echocardio gram. Use Cardizem 30 mg as needed for episode. Follow-up in the clinic. Social history: . 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 No other recreational drugs. Physical examination: VITAL SIGNS: 98.5, 67, 17, 111/75, 96% room air GENERAL: BMI 36.6, laying in bed awake comfortable. EYES: Pupils equal. Conjunctiva roxana l. HEENT: External appearance of nose and ears normal, oral cavity grossly normal. NECK: JVD not raised; masses not palpable. HEART: First and second heart sounds are normal; no edema. LUNGS: Respiratory rate normal; clear to auscultation. ABDOMEN: Soft, nontender, liver spleen not palpable, no masses palpable. PSYCH: Alert and oriented x3; mood and affect roxana l. MUSCULOSKELETAL:No Clubbing/cyanosis;muscles-grossly intact NEUROLOGICAL: Cranial nerves grossly intact; no facial asymmetry, power and sensation grossly intact. LYMPHATICS: No lymph nodes palpable in the axilla and neck INVESTIGATIONS, reviewed in the clinical context: Troponin I 0.033, 0.042 Triglycerides 195 LDL 85.6 TSH 1.14 Urine drug screen: Negative EKG tracing personally reviewed by me-normal sinus rhythm EKG from [facility]: SVT Assessment and plan: -Paroxysmal SVT. Symptomatic. Patient felt heart racing and palpitation and short of breath. Patient was given adenosine. Patient is at at least 3 prior episodes doses rather spaced out. With both her prior pregnancies. 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 Telemetry. For outpatient AVNRT ablation to be looked into. Echocardiogram. Follow-up with Dr. Wise in 1 week. Stop taking energy drinks including monster -Troponin leak from SVT. Disposition: Home Past Medical History Past Medical History: No Reported History Additional Past Medical History / Comment(s): SVT History of Any Multi-Drug Resistant Organisms: None Reported Past Surgical History: Appendectomy Additional Past Surgical History / Comment(s): Rt ACL reconstruction Past Anesthesia/Blood Transfusion Reactions: No Reported Reaction Past Psychological History: No Psychological Hx Reported Smoking Status: Never smoker Past Alcohol Use History: Occasional Past Drug Use History: None Reported Plan - Discharge Summary New Discharge Prescriptions: New Diltiazem Oral [Cardizem Oral] 30 mg PO Q8H PRN #15 tab PRN Reason: Heart Rate - High Continue Enskyce 0.15mg-30mcg 1 tab PO DAILY Discharge Medication List Enskyce 0.15mg-30mcg 1 tab PO DAILY 11/11/23 [History] Diltiazem Oral [Cardizem Oral] 30 mg PO Q8H PRN #15 tab 11/12/23 [Rx] Follow up Appointment(s)/Referral(s): Juan Pablo Wise DO [STAFF PHYSICIAN] - 10 Days Jacques Garcia MD [Primary Care Provider] - 1-2 days Discharge Disposition: HOME SELF-CARE
[2023-11-12 15:31] VITALS: BP 110/82; PULSE 90; RESP 18; TEMP 98
== END 2023-11-12 15:10 | disposition home or self-care (01) ==
LOC: EC 19:57 → 6NMEDSUR 20:37 → 3SCARD 11-12 02:12
PROVIDERS: ADMIT Hospitalist; ATTEND Hospitalist
DX: I47.19 Other supraventricular tachycardia (principal); R79.89 Other specified abnormal findings of blood chemistry; Z79.3 Long term (current) use of hormonal contraceptives
CPT/HCPCS: 99285; 36415; 80061; 84443; 84484 ×2; 80306; G0378 ×3